=== PATIENT | male | born 1995 | race Two or more races ===

== ENCOUNTER 2024-07-01 04:12 | Emergency (ER) | payer SELFPAY ==
[~2024-07-01] VITALS: Ht 193 cm; Wt 102.8 kg
[2024-07-01 04:30] VITALS: PULSE 105; RESP 10; TEMP 98.4; O2SAT 98
[2024-07-01] MEDS: SODIUM CHLORIDE 0.9% 1,000 ML IV ONE (04:51)
--- NOTE | 2024-07-01 04:51 | ED.PDOC ---
Musculoskeletal HPI Comments 29-year-old male came to ER for right shoulder pain. A history of right shoulder dislocation x3. He was assisting his girlfriend down the hill when he overextended his right shoulder earlier and he felt it pop out again. No other injuries noted. Chief Complaint: Upper Extremity Time Seen by MD: 04:50 Reviewed Notes: Nurses Notes Allergies: Coded Allergies: Amoxicillin (Verified Allergy, Unknown, 07/01/24) Penicillins (Verified Allergy, Unknown, 07/01/24) Uncoded Allergies: OPIATES (Allergy, Unknown, 07/01/24) Information Source: Patient Mode of Arrival: Ambulatory Location: Right Extremity Location: Shoulder Timing: Hours Prehospital treatment: None Severity: Moderate Able to Move Extremity: No Bear Weight: Limited Pain: Moderate Hand Dominance: Right Mechanism: Hyperextension Circumstances: Spontaneous, Accident Onset of Symptoms: Spontaneous Symptoms: Pain Associated signs and symptoms: Shoulder pain (right) Past Medical History Past Medical History (Other): right shoulder dislocations x4 Surgical History: Denies all surgeries Family History Family History: Reviewed,noncontributory to illness Social History Smoker: Non-Smoker Alcohol: Denies ETOH Use Drugs: Denies Drug Use Lives In: Home Constitutional: denies: chills, diaphoresis, fatigue, fever, malaise, sweats, weakness, others EENTM: denies: blurred vision, double vision, ear bleeding, ear discharge, ear drainage, ear pain, ear ringing, eye pain, eye redness, hearing loss, mouth pain, mouth swelling, nasal discharge, nose bleeding, nose congestion, nose pain, photophobia, tearing, throat pain, throat swelling, voice changes, others Respiratory: denies: cough, hemoptysis, orthopnea, SOB at rest, shortness of breath, SOB with excertion, stridor, wheezing, others Cardiovascular: denies: chest pain, dizzy spells, diaphoresis, Dyspnea on exertion, edema, irregular heart beat, left arm pain, lightheadedness, palpitations, PND, syncope, others Gastrointestinal: denies: abdomen distended, abdominal pain, blood streaked bowels, constipated, diarrhea, dysphagia, difficulty swallowing, hematemesis, melena, nausea, poor appetite, poor fluid intake, rectal bleeding, rectal pain, vomiting, others Genitourinary: denies: burning, dysuria, flank pain, frequency, hematuria, incontinence, penile discharge, penile sore, pain, testicle pain, testicle swelling, urgency, others Neurological: denies: dizziness, fainting, headache, left sided numbness, left sided weakness, numbness, paresthesia, pre-existing deficit, right sided numbness, right sided weakness, seizure, speech problems, tingling, tremors, weakness, others Musculoskeletal: reports: joint pain (right shoulder); denies: back pain, gout, joint swelling, muscle pain, muscle stiffness, neck pain, others Integumetry: denies: bruises, change in color, change in hair/nails, dryness, laceration, lesions, lumps, rash, wounds, others Allergic/Immunocompromised: denies: Difficulty Healing, Frequent Infections, Hives, Itching, others Hematologic/Lymphatic: denies: anemia, blood clots, easy bleeding, easy bruising, swollen glands, others Endocrine: denies: excessive hunger, excessive sweating, excessive thirst, excessive urination, flushing, intolerance to cold, intolerance to heat, unexplained weight gain, unexplained weight loss, others Psychiatric: denies: anxiety, bipolar disorder, depression, hopeless, panic disorder, schizophrenia, sleepless, suicidal, others Physical Exam General Appearance: No Apparent Distress, Normal HEENT: Normal ENT Inspection, Pharynx Normal, TMs Normal Neck: Full Range of Motion, Non-Tender, Normal, Normal Inspection Respiratory: Chest Non-Tender, Lungs Clear, No Accessory Muscle Use, No Respiratory Distress, Normal Breath Sounds Cardiovascular: No Edema, No JVD, No Murmur, No Gallop, Normal Peripheral Pulses, Regular Rate/Rhythm Breast Exam: Deferred Gastrointestinal: No Organomegaly, Non Tender, No Pulsatile Mass, Normal Bowel Sounds, Soft Genitalia: Deferred Pelvic: Deferred Rectal: Deferred Extremities: No calf tenderness, Normal capillary refill, Normal range of motion, Non-tender, No pedal edema, Other (right shoulder deformity) Musculoskeletal : Apperance: Normal Neurologic: Alert, circular saw filer II-XII nml as Tested, No Motor Deficits, Normal Affect, Normal Mood, No Sensory Deficits Cerebellar Function: Normal Reflexes: Normal Skin: Dry, Normal Color, Warm Lymphatic: No Adenopathy Was a procedure done? Was a procedure done?: Yes Sedation Sedation?: Yes Informed consent obtained: Yes Sedation start time: 05:30 Sedation end time: 06:00 Sedation total time: 30 minutes Reduction Indication: Subluxation (Anteroinferior subluxation of the humeral head with respect to the glenoid process.) Sedation: Consents obtained, Sedation as ordered Intra-articular anesthetic aluren: Yes Post-reduction x-ray show: Reduction Informed consent obtained: Yes Risks/benefits/alt described: Yes Differential Diagnosis EXT Differential Diagnosis: Fracture, Sprain, Dislocation, Strain X-Ray, Labs, Meds, VS Vital Signs Date Time Temp Pulse Resp B/P (MAP) Pulse Ox O2 Delivery O2 Flow Rate FiO2 07/01/24 04:30 105 10 98 Room Air* 0 21 07/01/24 04:30 98.4 98 10 163/106 (125) 98 98.4 07/01/24 04:20 98.4 99 16 168/116 (133) 98 98.4 Current Medications Medications (Trade) Dose Ordered Sig/Rebeka Route Start Time Stop Time Status Last Admin Sodium Chloride 1,000 ml @ 1,000 mls/hr Q1H ONCE IV 07/01/24 04:45 07/01/24 05:44 07/01/24 04:51 PROCEDURE(s): RSHD2 - R SHOULDER 2+ VIEW XRAY CLINICAL INDICATION: R/O DISLOCATION/FRACTURE TECHNIQUE: XY R SHOULDER 2+ VIEW XRAY Comparison: None FINDINGS/IMPRESSION: : Anteroinferior subluxation of the humeral head with respect to the glenoid process. There is no evidence of acute fracture. Soft tissues are unremarkable. Right shoulder dislocation successfully reduced as revealed by x-ray. The patient is to follow up with his primary care physician for orthopedic referral. Time of 1ST Reevaluation: 04:45 Reevaluation 1ST: Unchanged Patient Education/Counseling: Diagnosis, Treatment Family Education/Counseling: No Family Present Departure 1 Departure Time of Disposition: 06:10 Impression: Primary Impression: Shoulder dislocation Qualified Codes: S43.004A - Unspecified dislocation of right shoulder joint, initial encounter Disposition: 01 HOME / SELF CARE / HOMELESS Condition: Stable Additional Instructions: Reassessed patient, vital signs stable. Denies any new symptoms. Patient is able to tolerate PO and ambulate/be mobile at their baseline without concern. Risks and benefits of all medications given or prescribed, if any, discussed. All lab work, imaging and diagnostic studies were reviewed by me. The patient was counseled extensively on my clinical impression, diagnosis, expected course of the disease, and plan, including their follow-up care. Will discharge patient. Patient instructed to follow up with Primary Care Physician within 24-48 hours. Strict return precautions given for further exacerbation of symptoms or for new symptoms. The patient was given the opportunity to ask questions and all questions were answered by myself and the nursing/tech staff. Patient is in agreement with the care plan. The patient verbally expressed understanding of the discharge instructions, including the reasons to return to the Emergency Department. Discharged With: Friend Critical Care Note Critical Care Time?: No Stability Stability form required: No Heart Score Heart Score: Heart Score Response (Comments) Value History N/A 0 EKG N/A 0 Age N/A 0 Risk Factors N/A 0 Troponin N/A 0 Total 0 I personally scribed for CHANCE GARCIA MD ([email or web address]) on 07/01/24 at 04:51. Electronically submitted by Donovan Corcoran ([email or web address]). I personally scribed for CHANCE GARCIA MD ([email or web address]) on 07/01/24 at 05:32. Electronically submitted by Donovan Corcoran ([email or web address]). CHANCE GARCIA MD Jul 01, 2024 04:51
--- NOTE | 2024-07-01 05:08 | DVH ---
CLINICAL INDICATION: R/O DISLOCATION/FRACTURE TECHNIQUE: XY R SHOULDER 2+ VIEW XRAY Comparison: None FINDINGS/IMPRESSION: : Anteroinferior subluxation of the humeral head with respect to the glenoid process. There is no evidence of acute fracture. Soft tissues are unremarkable.
[2024-07-01] MEDS: PROPOFOL 10 MG/ML 20 ML IV ONE (05:28)
--- NOTE | 2024-07-01 05:56 | DVH ---
CLINICAL INDICATION: post reduction TECHNIQUE: XY R SHOULDER 1V XRAY Comparison: XY R SHOULDER 2+ VIEW XRAY on DOS: 07/01/24 FINDINGS/IMPRESSION: : Status post successful interval reduction of anterior glenohumeral dislocation. No fractures identifi ed.
[2024-07-01 06:08] VITALS: BP 141/97; PULSE 91; RESP 16; O2SAT 96
== END 2024-07-01 06:48 | disposition home or self-care (01) ==
LOC: ER 04:12
DX: S43.004A Unspecified dislocation of right shoulder joint, initial encounter (principal); S43.001A Unspecified subluxation of right shoulder joint, initial encounter; Z88.0 Allergy status to penicillin; Z88.5 Allergy status to narcotic agent; W17.81XA Fall down embankment (hill), initial encounter; Y93.89 Activity, other specified; Y92.828 Other wilderness area as the place of occurrence of the external cause; Y99.8 Other external cause status
CPT/HCPCS: 23650; 73020; 73030; 96360; 99152; 99153; 99285; J2704; J7030